=== PATIENT | male | born 1965 | race African-American/Black ===

== ENCOUNTER 2017-01-18 17:28 | Emergency (ER) | payer OTHER ==
[~2017-01-18] VITALS: Ht 160 cm; Wt 87.0 kg
[~2017-01-18 17:28] MED LIST: ACET1TAB40 PO; ASPI-664 PO; IBUP-1542 PO; LISI20TA11 PO; NAPR-688 PO; NIFE30TA8 PO; PRED20TA PO; TRAM50TA2 PO
[2017-01-18 17:31] VITALS: Ht 160 cm; Wt 87.0 kg
[2017-01-18] MEDS ORDERED: KETOROLAC 15 MG INJ IV STA (18:58)
[2017-01-18 19:23] LABS: ADD SCAN DIFF NO
[2017-01-18 19:24] LABS: BASOPHIL # 0.1 10^3/ul (0.0-0.1); BASOPHILS % 0.8 % (0.0-2.0); EOSINOPHILS # 0.1 10^3/ul (0.0-0.5); EOSINOPHILS % 1.2 % (0.0-7.0); HEMATOCRIT 43.5 % (42.0-52.0); HEMOGLOBIN 13.9 g/dl (14.0-18.0); LYMPHOCYTES # 2.1 10^3/ul (0.8-2.9); LYMPHOCYTES % 23.2 % (15.0-51.0); MEAN CORPUSCULAR HEMOGLOBIN 29.8 pg (29.0-33.0); MEAN CORPUSCULAR VOLUME 93.3 fl (82.0-101.0); MEAN PLATELET VOLUME 8.9 fl (7.4-10.4); MONOCYTE # 0.8 10^3/ul (0.3-0.9); MONOCYTES % 9.2 % (0.0-11.0); NEUTROPHIL # 5.7 10^3/ul (1.6-7.5); NEUTROPHILS % 64.8 % (39.0-77.0); PLATELET COUNT 249 10^3/UL (140-415); RED BLOOD COUNT 4.66 10^6/ul (4.70-6.10); RED CELL DISTRIBUTION WIDTH 12.4 % (11.5-14.5); WHITE BLOOD COUNT 8.9 10^3/ul (4.8-10.8)
--- NOTE | 2017-01-18 19:34 | RADRPT ---
PROCEDURE: XR Chest. CLINICAL INDICATION: Chest pain. TECHNIQUE: Single frontal view of the chest. COMPARISON: 06/15/2016. FINDINGS: The cardiomediastinal silhouette is within normal limits. The lungs are clear. No signs of pleural f luid or pneumothorax are seen. The osseous structures and soft tissues are unremarkable. IMPRESSION: No evidence for active cardiopulmonary disease. RPTAT: [facility] Physician Sh[place] Date Time Electronically viewed and signed by Eliseo Gaines Physician on 01/18/2017 19:34 RS/
[2017-01-18 19:40] LABS: INR 0.89; PT RATIO 0.9
[2017-01-18 19:41] LABS: PARTIAL THROMBOPLASTIN TIME 26.8 Sec (25.0-35.0)
[2017-01-18 19:54] LABS: ANION GAP 9 (8-16); BLOOD UREA NITROGEN 14 mg/dl (7-20); CALCIUM 8.5 mg/dl (8.4-10.2); CARBON DIOXIDE 23 mmol/L (21-31); CHLORIDE 109 mmol/L (97-110); CREATININE 1.13 mg/dl (0.61-1.24); GLUCOSE 86 mg/dl (70-220); SODIUM 137 mmol/L (135-144)
[2017-01-18] MEDS ORDERED: CARV3.1260 PO (20:17)
[2017-01-18 20:23] LABS: TROPONIN-I < 0.012 ng/ml (0.00-0.12)
--- NOTE | 2017-01-18 20:28 | ERD ---
ER Documentation Chief Complaint Date/Time DATE: 01/18/17 TIME: 20:26 Chief Complaint CWP X 3 EPISODES TODAY LASTING FEW SEC HPI This is a 31-year-old male who presents to the emergency room for evaluation of chest pain. This patient states that he was walking to his car and turned sharp to the right and felt a pain in the right portion of his chest. The patient states that the pain lasted 10 seconds and resolved. He states that approximately 1 minute later he felt the same sharp pain on the right side of his chest with no radiation. He denies any shortness of breath or palpitations and came to the ER for evaluation. The patient states he is not having any active pain at this time, denies any aggravating or relieving factors at this moment but states the pain started when he turned rapidly to the right ROS All systems reviewed and are negative except as per history of present illness. Medications Home Meds Reported Medications Carvedilol* (Carvedilol*) 3.125 Mg Tablet, 3.125 MG PO BID, #60 TAB 01/18/17 Nifedipine (Nifedical XL*) 30 Mg/Bottle Tab.osm.24, 30 MG PO DAILY, TAB.SA 07/22/14 Lisinopril* (Lisinopril*) 20 Mg Tablet, 20 MG PO DAILY, TAB 07/22/14 Aspirin* (Aspirin* EC) 81 Mg Tablet.dr, 81 MG PO DAILY, TAB 07/22/14 Discontinued Reported Medications Naproxen* (Naproxen*) 500 Mg Tablet, 500 MG PO BID Y for PAIN, TAB 07/22/14 Tramadol HCl (Tramadol HCl) 50 Mg Tab, 50 MG PO Q6, TAB 07/22/14 Discontinued Scripts Prednisone* (Prednisone*) 20 Mg Tab, 40 MG PO DAILY for 4 Days, TAB Prov:ROXY AGRAWAL MD 06/15/15 Ibuprofen* (Motrin*) 600 Mg Tab, 600 MG PO Q6, #30 TAB Prov:ROXY AGRAWAL MD 06/15/15 Acetaminophen-Codeine* (Acetaminophen-Cod #3*) 300-30 Mg Tab, 1 TAB PO Q4H Y for PAIN, #20 TAB Prov:ROXY AGRAWAL MD 06/15/15 Allergies Allergies: Coded Allergies: No Known Allergy (Unverified , 01/18/17) PMhx/Soc History of Surgery: Yes (RT KNEE ARTROSCOPY, R wrist) Anesthesia Reaction: No Hx Neurological Disorder: No Hx Respiratory Disorders: No Hx Cardiac Disorders: Yes (HTN) Hx Psychiatric Problems: No Hx Miscellaneous Medical Probl: No (hernia) Hx Alcohol Use: Yes (occasionaly) Hx Substance Use: Yes (marijuana) Hx Tobacco Use: No Physical Exam Vitals Vital Signs Date Time Temp Pulse Resp B/P Pulse Ox O2 Delivery O2 Flow Rate FiO2 01/18/17 17:31 99.0 85 20 158/102 99 Physical Exam INITIAL VITAL SIGNS: Reviewed by me GENERAL: The patient is well developed and appropriate for usual state of health in no apparent distress HEENT: Pupils equal, round, and reactive to light. EOMI. There is no scleral icterus. NECK: C-spine is soft and supple, there is no meningismus. There is no cervical lymphadenopathy. LUNGS: Clear to auscultation bilaterally. There are no rales, wheezes or rhonchi. HEART: Regular rate and rhythm, no murmurs, clicks, rubs or gallops. ABDOMEN: Soft, non-tender, non-distended. There are bowel sounds in all four quadrants. No rebound or guarding. EXTREMITIES: There is no peripheral cyanosis or edema. No focal swelling or erythema. NEUROLOGICAL: The patient moves all four extremities with 5/5 strength. Cranial nerves II - XII are intact. Normal gait. Alert and oriented SKIN: There is no apparent rash or petechiae. Musculoskeletal; tender to palpation right anterior chest wall HEME/LYMPHATIC: There is no evidence of excessive bruising or lymphedema. PSYCHIATRIC: The patient does not appear anxious or depressed. Result Diagram: 01/18/17191401/18/171914 Results 24 hrs Laboratory Tests Test 01/18/17 19:15 White Blood Count 8.910^3/ul Red Blood Count 4.6610^6/ul Hemoglobin 13.9g/dl Hematocrit 43.5% Mean Corpuscular Volume 93.3fl Mean Corpuscular Hemoglobin 29.8pg Mean Corpuscular Hemoglobin Concent 32.0g/dl Red Cell Distribution Width 12.4% Platelet Count 16736^3/UL Mean Platelet Volume 8.9fl Neutrophils % 64.8% Lymphocytes % 23.2% Monocytes % 9.2% Eosinophils % 1.2% Basophils % 0.8% Nucleated Red Blood Cells % 0.0/100WBC Neutrophils # 5.710^3/ul Lymphocytes # 2.110^3/ul Monocytes # 0.810^3/ul Eosinophils # 0.110^3/ul Basophils # 0.110^3/ul Nucleated Red Blood Cells # 0.010^3/ul Prothrombin Time 12.0Sec Prothrombin Time Ratio 0.9 INR International Normalized Ratio 0.89 Activated Partial Thromboplast Time 26.8Sec Sodium Level 137mmol/L Potassium Level 4.0mmol/L Chloride Level 109mmol/L Carbon Dioxide Level 23mmol/L Anion Gap 9 Blood Urea Nitrogen 14mg/dl Creatinine 1.13mg/dl Glucose Level 86mg/dl Calcium Level 8.5mg/dl Troponin I < 0.012ng/ml Current Medications Medications (Trade) Dose Ordered Sig/Halima Route PRN Reason Start Time Stop Time Status Last Admin Dose Admin Ketorolac Tromethamine (Toradol) 15 mg ONCE STAT IV 01/18/17 18:58 01/18/17 19:00 DC 01/18/17 19:18 Procedures/MDM EKG: Rate/Rhythm: [Normal Sinus Rhythm] QRS, ST, T-waves: [No changes consistent w/ acute ischemia] Impression: [No evidence of ischemia or arrhythmia] Chest X-ray 1V Interpreted by me: Soft Tissue: No acute abnormalities Bones: No acute abnormalities Mediastinum/Cardiac Silhouette/Lungs: [No acute abnormalities] This 51-year-old male presents to the ER for evaluation of chest pain. The patient states his chest pain started when he turned quickly to the right. On my examination he had reproducible tenderness to palpation. The patient had an EKG which is nonischemic. Troponin negative. Chest x-ray is clear. The patient is in no acute distress was given Toradol. The patient does feel better on my reexamination and otherwise patient is chest pain is likely from muscle strain chest. The patient will be discharged home as time with a prescription for Motrin. Differential diagnoses entertained was broad with potential high acuity. Patient has been evaluated for acute myocardial infarction, unstable angina, aortic dissection, pulmonary embolism, other intrathoracic and cardiac concerns. Ultimately the patient's evaluation is nondiagnostic. Based on the patient's lack of risk factors, as well as the patient's clinical, laboratory, and imaging data, the patient appears to be low risk for these high risk causes of chest pain. Smoking Cessation Therapy: Pt. was lectured for greater than 3 minutes on the health risks of continued smoking and the benefits of cessation. Departure Diagnosis: Primary Impression: Chest wall pain Additional Impressions: Tobacco abuse Tobacco abuse counseling Condition: Stable FRANCIS VITAL DO Jan 18, 2017 20:28
[2017-01-18] MEDS ORDERED: IBUP800T25 PO (20:29)
[2017-01-18 21:02] VITALS: BP 159/102; PULSE 60; RESP 16
== END 2017-01-18 21:05 | disposition home or self-care (01) ==
LOC: E/R 17:28
DX: R07.89 Other chest pain (principal); F17.200 Nicotine dependence, unspecified, uncomplicated; I10 Essential (primary) hypertension; Z71.6 Tobacco abuse counseling; Z79.82 Long term (current) use of aspirin
CPT/HCPCS: 36415; 71010; 80048; 84484; 85025; 85610; 85730; 93005; 96374; J1885; Z7502

== ENCOUNTER 2017-12-19 00:06 | Emergency (ER) | END 2017-12-19 02:58 | disposition home or self-care (01) ==

== ENCOUNTER 2018-01-07 14:18 | Emergency (ER) | END 2018-01-07 16:02 | disposition home or self-care (01) ==